=== PATIENT | male | born 1995 | race Caucasian/White ===

== ENCOUNTER 2018-11-27 02:18 | Emergency (ER) | payer OTHER ==
[~2018-11-27] VITALS: Ht 188 cm; Wt 93.0 kg
[~2018-11-27 02:18] MED LIST: AMOCLA250S PO; AMOX250 PO; AMOX50SU PO; Bactrim Ds Tab1 EACH PO; CEPH500 PO; CODACE30 PO; DIPH12.5EL; HYDACE5 PO; LORA10; LORA1SY; NASAL SPRAY; NEOPOLHYD OP; POLTRIOPSO OU; RXHYDACE PO; SULF10OPO OP; Silvadene20 GM TOP; [UNRECOGNIZED DRUG - REMARK]
== END 2018-11-27 05:22 | disposition home or self-care (01) ==
LOC: ER 02:18
DX: S61.214A Laceration without foreign body of right ring finger without damage to nail, initial encounter (principal); W25.XXXA Contact with sharp glass, initial encounter; F17.200 Nicotine dependence, unspecified, uncomplicated
CPT/HCPCS: 12001; 73140; 90471; 90714; 99283-25

== ENCOUNTER 2019-02-07 13:35 | Emergency (ER) | payer OTHER ==
[~2019-02-07] VITALS: Ht 188 cm; Wt 102.1 kg
== END 2019-02-07 16:44 | disposition left against medical advice (07) ==
LOC: ER 13:35
DX: Z53.21 Procedure and treatment not carried out due to patient leaving prior to being seen by health care provider (principal)